=== PATIENT | female | born 1965 | race Caucasian/White ===

== ENCOUNTER → 2023-09-05 10:00 | Outpatient (REF) | payer OTHER, SELFPAY | LOC: CLAB 10:00 | PROVIDERS: ATTENDING PHYSICIAN Surgery | DX: D49.4 Neoplasm of unspecified behavior of bladder (principal) | CPT/HCPCS: 88305; 88341; 88342 ==

== ENCOUNTER → 2023-10-17 11:22 | Outpatient (REF) | payer OTHER, SELFPAY | LOC: WDC 11:22 | PROVIDERS: ATTENDING PHYSICIAN Nurse Practitioner | DX: Z12.31 Encounter for screening mammogram for malignant neoplasm of breast (principal) | CPT/HCPCS: 77063; 77067 ==

== ENCOUNTER → 2024-04-27 09:43 | Outpatient (REF) | payer OTHER, SELFPAY | LOC: RCS 09:43 | PROVIDERS: ATTENDING PHYSICIAN Internal Medicine; FAMILY PHYSICIAN Nurse Practitioner | DX: R07.89 Other chest pain (principal) | CPT/HCPCS: 93017 ==

== ENCOUNTER 2024-05-01 09:40 | Emergency (ER) | payer OTHER, SELFPAY ==
[2024-05-01 09:44] VITALS: BP 180/100
[2024-05-01 10:55] VITALS: BMI 32.6
[2024-05-01 11:04] LABS: % Basophils 0.8 % (0-2); % Eosinophils 1.3 % (0-6); % Immature Granulocytes 0.3 % (0-0.5); % Lymphocytes 23.5 % (20.5-51.1); % Monocytes 7.7 % (1.7-9.3); % Neutrophils 66.4 % (42.2-75.2); Absolute Basophils 0.1 10^3/uL (0-0.2); Absolute Eosinophils 0.1 10^3/uL (0-0.7); Absolute Lymphocytes 1.4 10^3/uL (1.2-3.4); Absolute Monocytes 0.5 10^3/uL (0.1-0.6); Hematocrit 46.8 % (37.0-47.0); Hemoglobin 16.2 g/dL (12.0-16.0); Mean Corp Hgb Conc. 34.6 g/dL (33.0-37.0); Mean Corpuscular Hgb 30.8 pg (27.0-31.0); Mean Platelet Volume 10.8 fL (7.4-10.4); Nucleated Red Blood Cells % 0 %; Platelet Count 219 10^3/uL (130-400); Red Blood Cell Count 5.26 10^6/uL (4.20-5.40); Red Cell Dist. Width 12.3 % (11.5-14.5)
[2024-05-01 11:14] LABS: ALT (SGPT) 23 U/L (0-35); AST (SGOT) 25 U/L (14-36); Alkaline Phosphatase 80 U/L (38-126); Blood Urea Nitrogen 11 mg/dl (7-17); Calcium 10.3 mg/dl (8.4-10.2); Carbon Dioxide 23 mmol/L (22-30); Chloride 106 mmol/L (98-107); Estimated Creatinine Clearance 94 ml/min; Glucose 106 mg/dl (70-99); Potassium 4.2 mmol/L (3.5-5.1); Sodium 141 mmol/L (135-145); Total Bilirubin 0.3 mg/dl (0.2-1.3); Total Protein 7.8 g/dl (6.3-8.2); eGFR > 60.00
[2024-05-01 11:18] LABS: Urine Albumin Negative (Neg - Trace); Urine Bilirubin Negative (Negative); Urine Character Clear (Clear); Urine Color Yellow; Urine Glucose Negative (Negative); Urine Ketone Trace (Negative); Urine Leukocyte Trace (Negative); Urine Nitrite Negative (Negative); Urine Occult Blood Negative (Negative); Urine Specific Gravity 1.025 (<1.030); Urine Urobilinogen Negative (Neg - 1+)
--- NOTE | 2024-05-01 11:23 | ED.GENMED ---
History of Present Illness
<Jolene Plata MD, Resident - Last Filed: 05/01/24 13:48>
General
Chief Complaint: Abdominal Pain
Source: patient
Exam Limitations: none
Time Seen by Provider: 05/01/24 10:39
Nursing documentation reviewed up to this point in time: agreed with
Travel History
Have you traveled to any high risk areas for coronavirus over the past 14 days?: No
Have you had any contact with someone who has COVID-19?: No
Do you have any symptoms of coronavirus? Fever > 100 degrees, chills, cough, shortness of breath, sore throat, loss of taste or smell, muscle aches, or headache?: No
History of Present Illness
History of Present Illness:
59-year-old female with past medical history significant for CPAP, polyps, interstitial cystitis, cholecystectomy in 2017, postmenopausal bleeding presents to the hospital for evaluation of right lower abdominal discomfort that started about 2 weeks
ago. Her lower abdominal discomfort is intermittent in nature, mild initially 4/10 in intensity, nonradiating and isolated to suprapubic region, but over the last 1 week it started moving more towards her right lower quadrant and for the last 3
days she has been having the right upper quadrant pain as well her right-sided abdominal pain radiates into her right back, currently the pain continues to be intermittent, but when she has episodes her pain goes up to 9/10 in intensity. She is
always on the loose stool side, [place] stool scale 6, she noticed bright blood in the stool today that prompted her ER visit. She has increased frequency, hesitancy and was diagnosed with interstitial cystitis and follows urogynecology. Her
postmenopausal bleeding was several years ago and has been in remission for more than 5 years.
She denies having nausea, emesis, headaches, dizziness, chest pain, palpitations, fevers, chills, recent sick contacts or travel outside of [place]. She reports weight training for more than 30 days now
If applicable-neuro sx onset
Onset of symptoms known: No
Time pt last seen normal is known: No
Past History
<Jolene Plata MD, Resident - Last Filed: 05/01/24 13:48>
Past History
ED Past Medical History: HTN, Psychiatric (Anxiety) and Other (Sleep apnea)
Phy Exam
<Jolene Plata MD, Resident - Last Filed: 05/01/24 13:48>
General Physical Exam
General Presentation: well appearing and no apparent distress
General Skin: warm
General Habitus: normal
General Mental: alert
General Hydration: appears well hydrated
ENT Exam
ENT Exam: pharynx normal and neck supple
Eye Exam
Eye Exam: PERRL and EOMI
Cardiovascular Exam
Cardiovascular Exam: regular rate/rhythm, no edema, no gallop, no JVD, no murmur and normal peripheral pulses
Gastrointestinal Exam
Gastrointestinal Exam: normal bowel sounds, non tender, soft, no organomegaly, non distended and no cva tenderness
Guaiac Status: negative
Neurological Exam
Neurological Exam: alert and no motor deficits
Musculoskeletal Exam
Musculoskeletal Exam: no edema
Course
<Jolene Plata MD, Resident - Last Filed: 05/01/24 13:48>
Orders/Labs/Results
Orders:
Orders
05/01/24 10:53
CMP [Comprehensive Metabolic Panel] Urgent
Complete Blood Count/With Diff Urgent
Urinalysis Reflex To Culture Urgent
Date Specimen was Collected: 05/01/24
Time Specimen was Collected: 10:46
Urine Microscopic Reflex Cult Urgent
05/01/24 11:44
CT Abd/pel Without Iv Or Oral Urgent
Comment:
Reason For Exam: right flank pain
Acetaminophen [Tylenol] 1,000 mg PO NOW STA
Abnormal Lab Results
11/15/24
10:53
Hgb 16.2 H g/dL
(12.0-16.0)
MPV 10.8 H fL
(7.4-10.4)
Glucose 106 H mg/dl
(70-99)
Calcium 10.3 H mg/dl
(8.4-10.2)
Urine Ketones Trace A
(Negative)
Leukocyte Esterase Rfl Trace A
(Negative)
Urine Bacteria (Reflex) Few A
(Negative)
05/01/24 10:53
05/01/24 10:53
Vital Signs
Initial and Last Documented VS:
Initial Vital Signs
Temp Pulse Resp BP Pulse Ox
98.0 F 98 16 180/100 98
05/01/24 09:44 05/01/24 09:44 05/01/24 09:44 05/01/24 09:44 05/01/24 09:44
Last Documented Vital Signs
Temp Pulse Resp BP Pulse Ox
98.0 F 98 16 147/81 96
05/01/24 09:44 05/01/24 09:44 05/01/24 09:44 05/01/24 13:00 05/01/24 13:30
<James Dickinson MD - Last Filed: 05/01/24 14:17>
Orders/Labs/Results
Orders:
Orders
05/01/24 10:53
CMP [Comprehensive Metabolic Panel] Urgent
Complete Blood Count/With Diff Urgent
Urinalysis Reflex To Culture Urgent
Date Specimen was Collected: 05/01/24
Time Specimen was Collected: 10:46
Urine Microscopic Reflex Cult Urgent
05/01/24 11:44
CT Abd/pel Without Iv Or Oral Urgent
Comment:
Reason For Exam: right flank pain
Acetaminophen [Tylenol] 1,000 mg PO NOW STA
Abnormal Lab Results
05/01/24
10:53
Hgb 16.2 H g/dL
(12.0-16.0)
MPV 10.8 H fL
(7.4-10.4)
Glucose 106 H mg/dl
(70-99)
Calcium 10.3 H mg/dl
(8.4-10.2)
Urine Ketones Trace A
(Negative)
Leukocyte Esterase Rfl Trace A
(Negative)
Urine Bacteria (Reflex) Few A
(Negative)
05/01/24 10:53
05/01/24 10:53
Vital Signs
Initial and Last Documented VS:
Initial Vital Signs
Temp Pulse Resp BP Pulse Ox
98.0 F 98 16 180/100 98
05/01/24 09:44 05/01/24 09:44 05/01/24 09:44 05/01/24 09:44 05/01/24 09:44
Last Documented Vital Signs
Temp Pulse Resp BP Pulse Ox
98.0 F 98 16 147/81 96
05/01/24 09:44 05/01/24 09:44 05/01/24 09:44 05/01/24 13:00 05/01/24 13:30
<Jolene Plata MD, Resident - Last Filed: 05/01/24 13:48>
*Critical Care Note
Total Time (30-74mins, 75-104mins- exclusive of procedures): Not Applicable
<Jolene Plata MD, Resident - Last Filed: 05/01/24 13:48>
Update Note
Update Note:
Patient CBC and CMP are within normal limits, troponin less than 0.01 2 repeat troponin ordered for 3 hours from now.Patient CBC is within normal limits, CMP has mild hypercalcemia, urine analysis is consistent with her chronic interstitial
cystitis, abdominal imaging showed proctitis which is an incidental finding and 2 mm of nonobstructing left intrarenal calculus.
Reviewed with the patient.
ED Attending Note
<Jolene Plata MD, Resident - Last Filed: 05/01/24 13:48>
-
Portions of this chart may have been created with voice recognition software.� Occasional wrong word or��sound alike� substitutions may have occurred due to the inherent limitations of voice recognition software.
<James Dickinson MD - Last Filed: 05/01/24 14:17>
ED Attending Note
Patient seen and examined by attending physician: Yes
ED Attending Note:
Patient presents to ED secondary to intermittent right-sided abdominal pain over the past 2 weeks, which has worsened over the past couple of days. Denies fever or chills. Denies nausea, vomiting, or diarrhea. Denies direct trauma. Denies back
pain. Denies difficulty with urination. Denies change in bowel habits. Denies history of constipation. Denies recent change in medications or diet. Patient's medical history is significant for interstitial cystitis. As such, initially when she
developed lower abdominal pain, she attributed initial discomfort to her underlying cystitis. However, over the past couple of days, pain has worsened and has become more persistent, with radiation up to her stomach. In addition, prior to onset of
symptoms, patient does report starting to go to the gym more often and exercising with free weights. Patient is wondering whether or not that may be contributing to her presenting symptoms.
Physical Exam
General: no apparent distress, not acutely ill. afebrile
Head: nc/at. eomi
Neck: supple. normal range of motion
Heart: s1/s2 regular rate and rhythm, no murmur. equal radial pulses.
Lungs: no acute respiratory distress. clear bilaterally
Abdomen: normal bowel sounds. not tender. no distention
Neuro: alert and oriented. no focal neurological deficits
Skin: no rash
Psychiatric: well kept. interactive and cooperative
Extremities: no edema. no calf tenderness.
Due to stool color changes, rectal exam performed by resident - heme negative stool.
Patient with an unremarkable workup in ED, including blood work and CT abdomen/pelvis. Patient otherwise remained stable, afebrile, hemodynamically stable, and nontoxic-appearing. Patient is safe to discharge home, with instructions to take
Tylenol/Motrin for symptomatic relief, along with PCP follow-up as an outpatient. Advised to return to ED with worsening symptoms, i.e. fever/worsening pain/vomiting. Patient expresses understanding at time of discharge.
Discharge Plan
Departure
Patient Disposition: Home (Routine Discharge)
Date of Disposition: 05/01/24
Time of Disposition: 13:44
Patient with high blood pressure during this ER visit?: Yes
Condition: Good
Discharge Problem:
Left nephrolithiasis, Illness anxiety disorder
Instructions: Kidney Stone, Adult ED, BLOOD PRESSURE
Prescriptions:
No Action
amlodipine [Norvasc] 5 MG tablet
5 mg PO DAILY
pediatric [id number] [Multi-Vitamins with Iron] 1 EACH tablet,chewable
1 ea PO DAILY
citalopram [Celexa] 20 MG tablet
20 mg PO DAILY
alprazolam 0.5 MG tablet
0.5 mg PO PRN PRN (Reason: anxiety)
pantoprazole [Protonix] 40 mg tablet,delayed release (DR/EC)
40 mg PO DAILY Qty: 30 0RF
Rx Instructions:
Please take 30 minutes prior to eating or drinking anything in the morning.
Referrals:
Rere Jules CRNP [Family Provider] -
Activity Restrictions/Additional Instructions:
Your proctitis is an incidental finding. Eat 5 cups of fruits and vegetables a day with adequate amounts of hydration
You have a kidney stone in your left kidney which is 2 mm. It does not explain your right-sided abdominal pain.
But in case if you develop a red left-sided flank pain, nausea, vomitings -please remember that it could be renal colic and visit to the emergency room.
Follow-up with your primary care for illness anxiety within 1 week.
Interventions
Interventions:
*Risk Screen - Suicide Last Done: 05/01/24 09:44
*Neglect/Abuse Screening Last Done: 05/01/24 09:44
ED- Fall Risk Assessment Last Done: 05/01/24 10:55
*ED COVID-19 Vaccine History Last Done: 05/01/24 10:39
*Nursing Disposition Last Done: 05/01/24 13:59
SZ-Vfyops-Tejpruglfh Assessment Last Done: 05/01/24 10:55
Discharge Date and Time
Discharge Date/Time: 05/01/24 14:06
Print Language: [id number]
[2024-05-01] MEDS: TYLENOL 1000 MG PO (11:48)
[2024-05-01 11:51] VITALS: BP 136/84
[2024-05-01 11:52] LABS: Urine Squamous Cell 16-20 /LPF (Few)
[2024-05-01 11:53] LABS: Urine Bacteria Few (Negative)
[2024-05-01 11:54] LABS: Urine Red Blood Cell 0-2 /HPF (0-2)
[2024-05-01 12:00] VITALS: BP 138/80
[2024-05-01 12:56] VITALS: BP 151/83
[2024-05-01 13:00] VITALS: BP 147/81
== END 2024-05-01 14:06 | disposition home or self-care (01) ==
LOC: EMR 09:40
PROVIDERS: EMERGENCY PHYSICIAN Emergency Medicine; FAMILY PHYSICIAN Nurse Practitioner
DX: N20.0 Calculus of kidney (principal); F41.9 Anxiety disorder, unspecified; I10 Essential (primary) hypertension
CPT/HCPCS: 99284; 74176; 80053; 81003; 81015; 85025

== ENCOUNTER → 2024-07-09 13:03 | Outpatient (REF) | payer OTHER, SELFPAY | LOC: DHSLP 13:03 | PROVIDERS: ATTENDING PHYSICIAN Internal Medicine; FAMILY PHYSICIAN Nurse Practitioner | DX: G47.30 Sleep apnea, unspecified (principal); R06.83 Snoring | CPT/HCPCS: 95800 ==

== ENCOUNTER 2024-07-23 06:23 | Day surgery (SDC) | payer OTHER, SELFPAY | END 2024-07-23 14:27 | disposition home or self-care (01) | LOC: GI 06:23 | PROVIDERS: ATTENDING PHYSICIAN Internal Medicine | DX: Z12.11 Encounter for screening for malignant neoplasm of colon (principal); R93.3 Abnormal findings on diagnostic imaging of other parts of digestive tract; K60.2 Anal fissure, unspecified; D12.3 Benign neoplasm of transverse colon; K63.5 Polyp of colon; K62.89 Other specified diseases of anus and rectum; D12.5 Benign neoplasm of sigmoid colon; K63.89 Other specified diseases of intestine; Z86.0100 Personal history of colon polyps, unspecified | CPT/HCPCS: 45385; 45380; 88305 ==

== ENCOUNTER → 2024-10-14 14:06 | Outpatient (REF) | payer BC, SELFPAY | LOC: RAD 14:06 | PROVIDERS: ATTENDING PHYSICIAN Nurse Practitioner | DX: R91.1 Solitary pulmonary nodule (principal) | CPT/HCPCS: 71260; Q9967 ==

== ENCOUNTER → 2024-10-22 08:09 | Outpatient (REF) | payer BC, SELFPAY | LOC: WDC 08:09 | PROVIDERS: ATTENDING PHYSICIAN Nurse Practitioner | DX: Z12.31 Encounter for screening mammogram for malignant neoplasm of breast (principal) | CPT/HCPCS: 77063; 77067 ==

== ENCOUNTER → 2025-01-15 07:58 | Outpatient (REF) | payer BC, SELFPAY | LOC: RAD 07:58 | PROVIDERS: ATTENDING PHYSICIAN Internal Medicine; FAMILY PHYSICIAN Nurse Practitioner | DX: R91.1 Solitary pulmonary nodule (principal) | CPT/HCPCS: 71250 ==